=== PATIENT | female | born 1995 | race Caucasian/White ===

== ENCOUNTER 2020-10-28 00:13 | Inpatient (IN) ==
[~2020-10-28 00:13] MED LIST: BUTORPHANOL 2 MG/ML VIAL IV PRN; MEPERIDINE 50 MG/1 ML VIAL IV PRN; ONDANSETRON 4 MG/2 ML VIAL IV PRN
[2020-10-28] MEDS ORDERED: ePHEDrine 50 MG/ML VIAL IV PRN (00:19)
[2020-10-28] MEDS ORDERED: diphenhydrAMINE 50 MG/1 ML VIAL IV PRN ×2 (00:19)
[2020-10-28] MEDS ORDERED: hydrOXYzine HCL 25 MG/1 ML VIAL IM PRN (00:19)
[2020-10-28] MEDS ORDERED: PROMETHAZINE 25 MG/1 ML VIAL IM ONE (00:19)
[2020-10-28] MEDS ORDERED: NALOXONE 0.4 MG/ML VIAL IV PRN (00:19)
[2020-10-28] MEDS ORDERED: FAMOTIDINE 20 MG/2 ML VIAL IV PRN (00:20)
[2020-10-28] MEDS ORDERED: CITRIC ACID/SODIUM CITRATE 30 ML UDCUP PO PRN (00:20)
[2020-10-28] MEDS ORDERED: fentaNYL 2 MCG/ROPIV 0.2% EPID 100 ML EPIDURAL SCH (00:30)
[2020-10-28] MEDS ORDERED: LACTATED RINGERS 1,000 ML IV SCH (00:30)
[2020-10-28] MEDS ORDERED: OXYTOCIN/LR 20 UNIT/1,000 ML BAG IV SCH (01:00)
[2020-10-28] MEDS: LACTATED RINGERS 1,000 ML IV SCH ×3 (01:09→12:20)
[2020-10-28 02:25] LABS: Alanine Aminotransferase 13 U/L (13-56); Albumin 2.8 G/DL (3.4-5.0); Alkaline Phosphatase 236 U/L (45-117); Aspartate Amino Transferase 13 U/L (0-37); Bilirubin,Total < 0.39 MG/DL (0.2-1.0); Blood Urea Nitrogen 12 MG/DL (7-18); Calcium 8.4 MG/DL (8.5-10.1); Carbon Dioxide 20 MMOL/L (21-32); Estimated Glom Filtration Rate 151 ML/MIN; Glucose 76 MG/DL (74-106); Potassium 3.8 MMOL/L (3.5-5.1); Sodium 136 MMOL/L (136-145); Total Protein 6.6 G/DL (6.4-8.2)
[2020-10-28 02:48] LABS: Basophils % 0.2 % (0.0-0.8); Eosinophils # 0.1 10*3/uL (0.0-0.87); Eosinophils % 0.9 % (0.00-10.9); Hematocrit 33.9 VOL% (35.7-47.0); Immature Granulocytes Absolute 0.13 #; Lymphocytes # 2.8 10*3/uL (1.4-4.0); Lymphocytes % 21.7 % (21.3-54.2); Mean Corpuscular HGB Conc 32.4 GM/DL (32-36); Mean Corpuscular Volume 82.3 FL (87-102); Mean Platelet Volume 12.9 FL (9.6-12.0); Monocytes % 6.6 % (1.7-12.7); Neutrophils % 69.6 % (38.7-73.9); Platelet Count 146 T/CUMM (130-400); Red Blood Count 4.12 MC/CUMM (3.8-5.5); Red Cell Distribution Width 13.5 % (9.3-17.3); White Blood Count 12.8 T/CUMM (4-12)
[2020-10-28] MEDS ORDERED: ACETAMINOPHEN 500 MG TABLET PO ONE (08:35)
[2020-10-28 10:51] LABS: Bilirubin,Urine Negative (Negative); Blood, Urine Negative (Negative); Glucose,Urine (UA) Negative (Negative); Ketones,Urine Negative (Negative); Mucus,Urine Many /LPF (Occasional); Nitrite,Urine Negative (Negative); Protein,Urine 100 MG/DL; RBC,Urine <1 /HPF (0-4); Squamous Epithelial Cell,Urine Occasional /HPF (0-10); Urine Appearance CLEAR (Clear); Urine Color Yellow (Yellow); Urine Specific Gravity 1.017 (1.001-1.035); Urine Urobilinogen < 2.0 EU/DL (0.2-1.0)
[2020-10-28] MEDS ORDERED: miSOPROStoL 200 MCG TABLET ONE (13:03)
[2020-10-28] MEDS ORDERED: CARBOPROST TROMETHAMINE 250 MCG/ML AMP IM ONE (13:03)
[2020-10-28] MEDS ORDERED: METHYLERGONOVINE 0.2 MG/1 ML AMP ONE (13:03)
[2020-10-28 15:39] LABS: Cord Venous Blood HCO3 16.7 MMOL/L; Cord Venous Blood PCO2 54.6 MMHG; Cord Venous Blood PO2 23.2
[2020-10-28] MEDS ORDERED: IBUPROFEN 800 MG TABLET PO ONE (18:34)
[2020-10-28] MEDS ORDERED: WITCH HAZEL PADS 100/JAR TOP PRN (19:01)
[2020-10-28] MEDS ORDERED: ACETAMINOPHEN 325 MG TABLET PO PRN (19:01)
[2020-10-28] MEDS ORDERED: LANOLIN 50% CREAM 0.3 OZ TUBE TOP PRN (19:01)
[2020-10-28] MEDS ORDERED: oxyCODONE/ACETAMINOPHEN 5-325 MG TABLET PO PRN (19:01)
[2020-10-28] MEDS ORDERED: BENZOCAINE 20%/MENTHOL 0.5% SPRAY 56 GM CAN TOP PRN (19:01)
[2020-10-28] MEDS ORDERED: HYDROCORTISONE 2.5% RECTAL CREAM 30 GM TUBE TOP PRN (19:01)
[2020-10-28] MEDS ORDERED: RHO(D) IMMUNE GLOBULIN 300 MCG SYRINGE IM ONE (19:01)
[2020-10-28] MEDS ORDERED: OXYTOCIN/LR 20 UNIT/1,000 ML BAG IV ONE (19:01)
[2020-10-28] MEDS ORDERED: BISACODYL 10 MG SUPP RECTAL PRN (19:01)
[2020-10-28] MEDS ORDERED: MEASLES/MUMPS/RUBELLA VACCINE 0.5 ML VIAL SUBCUT ONE (19:01)
[2020-10-28] MEDS ORDERED: DIPH/TET/ACEL PERT BOOSTER VACCINE 0.5 ML VIAL IM ONE (19:01)
[2020-10-28] MEDS: DOCUSATE SODIUM 100 MG CAPSULE PO SCH (20:54)
[2020-10-28] MEDS: oxyCODONE/ACETAMINOPHEN 5-325 MG TABLET PO PRN (21:04)
[2020-10-29] MEDS: IBUPROFEN 800 MG TABLET PO PRN ×4 (00:32→23:44)
[2020-10-29 05:50] LABS: Basophils % 0.3 % (0.0-0.8); Eosinophils # 0.1 10*3/uL (0.0-0.87); Eosinophils % 0.7 % (0.00-10.9); Hematocrit 32.5 VOL% (35.7-47.0); Hemoglobin 10.4 GM/DL (12.0-16.0); Immature Granulocytes % 1.1 %; Immature Granulocytes Absolute 0.16 #; Lymphocytes # 2.7 10*3/uL (1.4-4.0); Lymphocytes % 18.5 % (21.3-54.2); Mean Corpuscular Volume 85.1 FL (87-102); Mean Platelet Volume 12.6 FL (9.6-12.0); Monocytes % 8.3 % (1.7-12.7); Neutrophils % 71.1 % (38.7-73.9); Platelet Count 117 T/CUMM (130-400); Red Blood Count 3.82 MC/CUMM (3.8-5.5); Red Cell Distribution Width 13.5 % (9.3-17.3); White Blood Count 14.5 T/CUMM (4-12)
[2020-10-29] MEDS: DOCUSATE SODIUM 100 MG CAPSULE PO SCH ×2 (08:37→20:35)
[2020-10-29] MEDS ORDERED: RHO(D) IMMUNE GLOBULIN 300 MCG SYRINGE IM ONE (13:48)
[2020-10-29] MEDS: oxyCODONE/ACETAMINOPHEN 5-325 MG TABLET PO PRN (19:21)
[2020-10-30] MEDS: oxyCODONE/ACETAMINOPHEN 5-325 MG TABLET PO PRN (02:35)
[2020-10-30 07:28] VITALS: BP 129/64
[2020-10-30] MEDS: DOCUSATE SODIUM 100 MG CAPSULE PO SCH (09:18)
== END 2020-10-30 11:20 | disposition home or self-care (01) | DRG 807 ==
LOC: N.LD → N.OB 19:45
PROVIDERS: ADMIT Obstetrics & Gynecology; ATTEND Obstetrics & Gynecology